=== PATIENT | female | born 1980 | race Caucasian/White ===

== ENCOUNTER 2017-10-22 10:49 | Emergency (ER) | payer SELFPAY ==
[2017-10-22 11:29] VITALS: RESP 20; TEMP 99.1
[2017-10-22] MEDS ORDERED: ALBUTEROL NEB SOL 2.5MG/3ML 1 VIAL SOL NEB ONE (11:44)
[2017-10-22] MEDS ORDERED: ALBUTEROL NEB SOL 2.5MG/3ML 1 VIAL SOL ONE (11:49)
[2017-10-22 11:57] LABS: BASOPHILS % (AUTO) 0 % (0-3); EOSINOPHILS % (AUTO) 1 % (0-9); HEMATOCRIT 38 % (35-47); MEAN CORPUSCULAR HGB CONC 33.2 gm/dl (32.0-36.0); MEAN CORPUSCULAR VOLUME 84 fL (81-99); MONOCYTES % (AUTO) 5.9 % (0-12); NEUTROPHILS % (AUTO) 79.5 % (37-80)
[2017-10-22 12:06] LABS: CALCIUM 8.5 mg/dl (8.5-10.1); POTASSIUM 4.1 mMol/L (3.5-5.1)
[2017-10-22 13:09] VITALS: BP 151/98; PULSE 106; O2SAT 97
== END 2017-10-22 13:05 | disposition home or self-care (01) | DRG 125 ==
LOC: ED 10:49
DX: H10.33 Unspecified acute conjunctivitis, bilateral (principal); J01.90 Acute sinusitis, unspecified; J37.0 Chronic laryngitis
CPT/HCPCS: 36415; 71020; 80048; 84703; 85025; 99283; J7603

== ENCOUNTER 2017-10-27 08:06 | Emergency (ER) | payer MEDICAID ==
[2017-10-27 08:44] VITALS: BP 134/89; PULSE 118; RESP 20; TEMP 98.4; O2SAT 100
== END 2017-10-27 09:20 | disposition home or self-care (01) | DRG 301 ==
LOC: ED 08:06
DX: I80.02 Phlebitis and thrombophlebitis of superficial vessels of left lower extremity (principal)
CPT/HCPCS: 36415; 85378; 99282